=== PATIENT | male | born 1965 | race Hispanic/Latino ===

== ENCOUNTER 2019-07-26 13:50 | Observation (INO) | payer OTHER ==
[2019-07-26] MEDS ORDERED: Nitroglycerin 2% Ointment 1 INCH/1 GM Packet ONE (14:36)
[2019-07-26 14:42] LABS: #Basophils 0.1 thou/uL (0.0-0.2); #Eosinphils 0.3 thou/uL (0.0-0.7); #Lymphocytes 1.8 thou/uL (1.20-3.40); #Monocytes 0.5 thou/uL (0.11-0.59); #Neutrophils 6.1 thou/uL (1.40-6.50); %Basophils 0.6 % (0.0-1.0); %Eosinophils 3.2 % (0.0-10.0); %Lymphocytes 20.5 % (21.0-51.0); %Monocytes 5.9 % (0.0-10.0); %Neutrophils 69.7 % (42.0-75.0); Hemoglobin 15.9 g/dL (14.0-18.0); Mean Corpuscular HGB CONC 34.2 g/dL (32.0-36.0); Mean Corpuscular Hemoglobin 30.3 pg (27.0-31.0); Mean Corpuscular Volume 88.4 fL (78.0-98.0); Mean Platelet Volume 7.8 fL (7.4-10.4); Platelet Count 244 thou/uL (130-400); RBC Distribution Width 11.7 % (11.5-14.5); Red Blood Cell (RBC) Count 5.24 mill/uL (4.70-6.10); White Blood Cell (WBC) Count 8.7 thou/uL (4.8-10.8)
--- NOTE | 2019-07-26 15:01 | RAD ---
PORTABLE CHEST ONE VIEW: 07/26/2019 1:58 p.m. HISTORY: Chest pain. FINDINGS: The heart size is normal. The aorta is tortuous. The lungs are well expanded without lobar consolidat ion, pneumothoraces or pleural effusions. IMPRESSION: No radiographic evidence of acute cardiopulmonary process. POS: KOSTAA
[2019-07-26 15:04] LABS: ALT (SGPT) 15 U/L (8-55); AST (SGOT) 18 U/L (5-34); Albumin 4.6 g/dL (3.5-5.0); Alkaline Phosphatase 83 U/L (40-110); Anion Gap 15 mmol/L (10-20); BUN (Urea Nitrogen) 14 mg/dL (8.4-25.7); Bilirubin, Total 0.4 mg/dL (0.2-1.2); CK (CPK) 102 U/L (30-200); Calc. Creatinine Clearance 0 mL/min (70-130); Calcium 9.4 mg/dL (7.8-10.44); Carbon Dioxide 20 mmol/L (22-29); Chloride 106 mmol/L (98-107); Estimated GFR-MDRD Greater than 90; Globulin 2.8 g/dL (2.4-3.5); Glucose 97 mg/dL (70-105); Potassium 4.2 mmol/L (3.5-5.1); Protein, Total 7.4 g/dL (6.0-8.3); Sodium 137 mmol/L (136-145)
--- NOTE | 2019-07-26 15:59 | PDOC.FPRHP ---
- History of Present Illness History of Present Illness: 53 yo male presents for evaluation of blood pressure. Reports his left arm was throbbing during the week. Reports problems with a pinching sensation throughout the day. Worsened with driving. Pain is described as pinching, burning, stinging, pressure pain. Last seconds. Improves on its own. First episodes this week. Pain radiates from shoulder to fingers. States his neck was hurting and he was concerned this could be his blood pressure. BP upon arrival was 135/96. States he previously had a cardiac workup that was negative. Patient states he is very active. No CP, palpitations, SOB. PCP: Jeremiah Specialist: Alexander Code Status: Full PMHx: HLD, took statins at one time and stopped on his own; previously was on lisinopril but stopped on his own Valvular heart dz? -- leaky valve, hx of tobacco use, Right-sided sciatic nerve impingement Lumbar repair for trauma 2008 Social alcohol use. Tobacco use in the past. Up to 2.5 ppd. Stopped 10 years ago. No illegal drug use. Works for [email or web address] Father with CAD. Brother with OR/CAD. Allergy to iodine, shellfish No medications ROS pos: none other than HPI ED Course: NS, held nitro - Allergies/Adverse Reactions Allergies Allergy/AdvReac Type Severity Reaction Status Date / Time No Known Allergies Allergy Verified 10/22/13 10:07 - Home Medications Medication Instructions Recorded Confirmed Type Amoxicillin/Potassium Clav 1 tab PO Q12HR #20 tablet 10/22/13 Rx [Augmentin] HYDROcodone/Chlorphen Polis 5 ml PO BID PRN #70 ml 10/22/13 Rx [Tussionex] - Review of Systems General: denies: fever/chills, night sweats Eyes: denies: eye pain, vision changes ENT: denies: nasal congestion, rhinorrhea Respiratory: denies: cough, shortness of breath Cardiovascular: reports: chest pain (previously, not currently). denies: edema Gastrointestinal: denies: nausea, vomiting, constipation Genitourinary: denies: incontinence, discharge Skin: denies: rashes, lesions Musculoskeletal: denies: pain, swelling Neurological: denies: numbness, syncope Psychological: denies: anxiety, depression - Vital signs BP: [135/96] HR: [60] RR: [16] Tmax: [97.6] Pox: [98]% on [RA] Wt: [92.25kg] - Physical Exam Constitutional: NAD, awake, alert and oriented HEENT: EOMI, no scleral icterus, MMM Neck: supple, FROM, trachea midline Chest: no-tender to palpation, no lesions Heart: RRR, normal S1/S2, no murmurs/rubs/gallops, pulses present Lungs: CTAB, no respiratory distress Abdomen: soft, non-tender Musculoskeletal: normal structure, normal tone, ROM grossly normal Neurological: no focal deficit, CN II-XII intact Skin: no rash/lesions, good turgor Heme/Lymphatic: no unusual bruising or bleeding, no purpura Psychiatric: normal mood and affect, good judgment and insight FMR H&P: Results - Labs Result Diagrams: 07/26/19 14:34 07/26/19 14:34 Lab results: WBC 8.7 thou/uL (4.8-10.8) 07/26/19 14:34 Hgb 15.9 g/dL (14.0-18.0) 07/26/19 14:34 Hct 46.4 % (42.0-52.0) 07/26/19 14:34 MCV 88.4 fL (78.0-98.0) 07/26/19 14:34 Plt Count 244 thou/uL (130-400) 07/26/19 14:34 Neutrophils % 69.7 % (42.0-75.0) 07/26/19 14:34 Sodium 137 mmol/L (136-145) 07/26/19 14:34 Potassium 4.2 mmol/L (3.5-5.1) 07/26/19 14:34 Chloride 106 mmol/L (98-107) 07/26/19 14:34 Carbon Dioxide 20 mmol/L (22-29) L 07/26/19 14:34 BUN 14 mg/dL (8.4-25.7) 07/26/19 14:34 Creatinine 0.81 mg/dL (0.7-1.3) 07/26/19 14:34 Glucose 97 mg/dL (70-105) 07/26/19 14:34 Calcium 9.4 mg/dL (7.8-10.44) 07/26/19 14:34 Total Bilirubin 0.4 mg/dL (0.2-1.2) 07/26/19 14:34 AST 18 U/L (5-34) 07/26/19 14:34 ALT 15 U/L (8-55) 07/26/19 14:34 Alkaline Phosphatase 83 U/L (40-110) 07/26/19 14:34 Creatine Kinase 102 U/L (30-200) 07/26/19 14:34 B-Natriuretic Peptide 11.5 pg/mL (0-100) 07/26/19 14:34 Serum Total Protein 7.4 g/dL (6.0-8.3) 07/26/19 14:34 Albumin 4.6 g/dL (3.5-5.0) 07/26/19 14:34 - EKG Interpretation EKG: Normal sinus rhythm FMR H&P: A/P - Problem List (1) Chest pain, rule out acute myocardial infarction Current Visit: Yes Status: Acute Code(s): R07.9 - CHEST PAIN, UNSPECIFIED (2) HLD (hyperlipidemia) Current Visit: Yes Status: Acute Code(s): E78.5 - HYPERLIPIDEMIA, UNSPECIFIED - Plan #ACS R/O -patient has had intermittent cp throughout the past week, followed by Dr. Munoz outpatient -EKG nsr, initial trop neg, continue to trend -will risk stratify: Flp, A1c -81mg asa -Heart score 4 -npo at midnight -stress test 07/27 #HLD, hx of -FLP tomorrow for risk stratification -will discuss statin use with patient tomorrow if necessary, as patient has stopped all of his home meds on his own DVT: lovenox Diet: HH, NPO at midnight Dispo: obs for stress test 07/27 for acs r/o Code: Full FMR H&P: Upper Level - Pertinent history Pt is a 53yo M with PMH of "leaky valve", previous hx of tobacco abuse (quit 10 yrs ago), Fhx of CAD, and HLD (untreated) here with 1 week hx of chest "pinching " with associated arm and L jaw/neck pain. He had negative stress test [address] Munoz. He denies HER, exertional angina, palpitations, LIN, n/v/c/ d. PMH: used to be treated for HTN with Lisinopril but didn't tolerate med and was told he could d/c, HLD Social: smoking 1-2.5ppd- quit 10 years ago. denies etoh and drug use. Fhx: brother and father with CAD - Pertinent findings VS: BP135/96 P60 R16, T97.6 O298%RA Gen: NAD, well appearing HEENT: moist MM, EOMI, no LAD Cardio: RRR, no murmurs, no reproducible cp on palpation Lungs: CTAB Abd: soft, nontender Ext: no edema, no pain with palpation of L arm Psych: Aox4 Pertinent Labs: Troponin: <0.01 BNP: 11 EKG: NSR, no ST changes - Plan Date/Time: 07/26/191549 I, Erin Alves, have evaluated this patient and agree with findings/plan as outlined by employee communications intern resident. Pertinent changes/additions are listed here. Atypical CP: - Heart score 2. Will get AM treadmill stress test, NPO at CO. Will risk stratify with FLP, TSH, A1c. Hx of possible HTN, will continue to monitor for need of antihypertensives. Trend trops. Hx of HLD: FLP pending. Pt reports previous refusal to take meds. Anticipate need to have discussion on risks of elevated cholesterol and CAD. Dispo: likely <2 midnights Code status: Full Addendum - Attending - Attending Attestation Date/Time: 07/26/191549 I personally evaluated the patient and discussed the management with Dr. Alves and Dr. Bautista I agree with the History, Examination, Assessment and Plan documented above with any addition or exceptions noted below. 53 yo male with extensive family hx of heart dz presents for evaluation of left sided arm pain. Previous stress testing negative but has been over 1 year. Denies any symptoms with activity. States arm pain has been progressive over the past week. Notes some increase in stress at work. VS, labs, imaging reviewed. Agree with PE as documented by resident. 1. Atypical CP: Due to family hx concern for ACS. Trop and EKG negative. Pain resolved. Stress negative last year. Will repeat stress in AM. Evaluate risk factors. 2. Left arm pain: Likely related to MSK. Would perform workup outpatient. Has history of back trauma. Consider gabapentin as needed. Obs. ABrayMD
[2019-07-26] MEDS ORDERED: Ondansetron ODT 4 MG TAB PO PRN (16:45)
[2019-07-26] MEDS ORDERED: Acetaminophen 325 MG TAB PO PRN (16:45)
[2019-07-26 18:06] LABS: Troponin I Less than 0.010 ng/mL (< 0.028)
[2019-07-26 19:37] VITALS: BMI 31.6
[2019-07-26 20:56] LABS: Troponin I Less than 0.010 ng/mL (< 0.028)
[2019-07-27 04:39] LABS: Hemoglobin A1c 5.3 % (4.0-6.0)
[2019-07-27 04:46] LABS: Cardiac Risk 5.1 (Less than 4.5)
--- NOTE | 2019-07-27 06:52 | PDOC.FM ---
- Subjective Subjective: Pt is doing well today. He denies any pain. He does not take any medications at home. He sees Dr. Munoz for "leaky heart valve". - Objective Vital Signs & Weight: Vital Signs (12 hours) Temp Pulse Resp BP BP Pulse Ox 07/27/19 03:45 97.9 F 58 L 16 110/65 97 07/27/19 00:23 97.7 F 68 16 138/66 95 07/26/19 19:13 97.6 F 62 16 161/85 H 96 Weight Weight 94.574 kg I&O: 07/25/19 07/26/19 07/27/19 06:59 06:59 06:59 Intake Total 240 Balance 240 Result Diagrams: 07/26/19 14:34 07/26/19 14:34 Phys Exam - Physical Examination Constitutional: NAD Respiratory: no wheezing, no rales, clear to auscultation bilateral Cardiovascular: RRR, no significant murmur Gastrointestinal: soft, non-tender, no distention, positive bowel sounds Musculoskeletal: no edema, pulses present Neurological: non-focal, normal sensation Psychiatric: normal affect, A&O x 3 Dx/Plan (1) Hx of smoking Code(s): Z87.891 - PERSONAL HISTORY OF NICOTINE DEPENDENCE Status: Acute (2) Chest pain, rule out acute myocardial infarction Code(s): R07.9 - CHEST PAIN, UNSPECIFIED Status: Acute (3) HLD (hyperlipidemia) Code(s): E78.5 - HYPERLIPIDEMIA, UNSPECIFIED Status: Acute - Plan Plan: #ACS R/O -patient has had intermittent cp throughout the past week, followed by Dr. Munoz outpatient for "leaky heart valve" -EKG nsr, initial trop neg x 3 -Trig 159, Chol 199, LDL 128, HDL 39 ; ASCVD Risk 7.2% - a1C 5.3 -81mg asa - continue on discharge -Heart score 4 -npo at midnight -stress test pending today #HLD, hx of - Trig 159, Chol 199, LDL 128, HDL 39 - will start atorvastatin 40 mg daily DVT: lovenox Diet: HH, NPO at midnight Dispo: obs for stress test today for acs r/o; if negative pt will be discharged. Code: Full
[2019-07-27] MEDS ORDERED: Enoxaparin Sodium 40 MG/0.4 ML SYRINGE SC SCH (09:00)
[2019-07-27] MEDS ORDERED: Aspirin 81 mg Enteric Coated Tablet PO SCH (09:00)
[2019-07-27 09:23] VITALS: BP 123/77; TEMP 97.8
[2019-07-27] MEDS ORDERED: Atorvastatin Calcium 40 MG TAB PO SCH (21:00)
--- NOTE | 2019-07-28 08:14 | DIS ---
DATE OF ADMISSION: 07/26/2019 DATE OF DISCHARGE: 07/27/2019 RESIDENT: Isreal Gaytan DO ADMITTING ATTENDING: Nisha Wisdom MD DISCHARGE ATTENDING: Kadeem Mccabe MD CONSULTS: None. PROCEDURES PERFORMED: 1. Exercise stress test on 07/27/2019, revealed no signs of ischemia or significant blockages. 2. Chest x-ray on 07/26/2019, revealed no radiographic evidence of acute cardiopulmonary processes. PRIMARY DIAGNOSIS: Chest pain, rule out. SECONDARY DIAGNOSIS: Hyperlipidemia. DISCHARGE MEDICATIONS: 1. Atorvastatin 40 mg daily. 2. Aspirin 81 mg p.o. daily. 3. Resume home medication. 4. Tussionex 5 mL p.o. b.i.d. p.r.n. DISCONTINUED MEDICATIONS: None. HISTORY OF PRESENT ILLNESS/HOSPITAL COURSE: Mr. Gustavo Garay is a 53-year- old male, who presented to the emergency department with intermittent chest pain throughout the previous week. His past medical history is significant for leaky heart valve, for which he sees Dr. Munoz in the outpatient setting. He states that his brother and father also have heart defects. It is likely he is speaking of valvular regurgitation. His EKG revealed normal sinus rhythm, troponins were negative x3. He was risk stratified as he did not have any lipid panels or A1c on file. Due to his elevated triglycerides 159, cholesterol 199, LDL 128, HDL 39, and ASCVD risk of 7.2%, he was started on atorvastatin 40 mg daily. A1c level was 5.3. Due to his chest pain, we also started him on asp 81. He underwent a stress test which did not reveal any significant abnormalities, ischemia, or blockages. He was instructed to follow up with his primary care physician, Dr. Korina Whitten , at his next convenience to follow up on his hyperlipidemia. He is also advised to follow up with Dr. Munoz concerning his possible cardiac regurgitation. DISPOSITION: Stable. DISCHARGE INSTRUCTIONS: 1. Location: [facility]. 2. Diet: Heart healthy. 3. Activity: Ad anish. 4. Followup: Follow up with Dr. Korina Whitten in the next 1-2 weeks. Job ID: [id number] [facility]
--- NOTE | 2019-07-30 10:21 | STRESS ---
Acquisition Time: 2019-07-27 08:32:26 Total Exercise Time: 00:09:00 Test Indications: CHEST PAIN Medications: Protocol: ELIS Max HR: 144 BPM 86% of Pred: 166 BPM Max BP: 162/096 mmHG Max Work Load: 10.1 METS RESTING ECG: NORMAL SINUS RHYTHM SYMPTOMS: DYSPNEA ON EXERTION NORMAL BP RESPONSE ECTOPY: NONE ECG STRESS: NO SIGNIFICANT CHANGES INTERPRETATION: NEGATIVE GXT EXERCISE FOR 9:00; PEAK HEART RATE 146 BPM Confirmed by GRISEL TORRE ([id number]), editor magazine SARAY SCRUGGS ([id number]) on 07/30/2019 10:20:35 AM Referred By: MD Pablo WHITING Confirmed By:GRISEL TORRE
--- NOTE | 2019-08-01 15:22 | EKG ---
Test Reason : Blood Pressure : / mmHG Vent. Rate : 068 BPM Atrial Rate : 068 BPM P-R Int : 156 ms QRS Dur : 096 ms QT Int : 386 ms P-R-T Axes : 042 009 041 degrees QTc Int : 410 ms Normal sinus rhythm Normal ECG Confirmed by CHANTEL CISNEROS, SANTO ([id number]), editor house organ GAMAL WOODRUFF ([id number]) on 08/01/2019 3:21:40 PM Referred By: Confirmed By:SANTO GOLDEN MD
== END 2019-07-27 13:02 | disposition home or self-care (01) ==
LOC: ERS 13:50 → ERHOLD 16:00 → 2SW 19:45
PROVIDERS: ADMIT Family Medicine; ATTEND Family Medicine
DX: R07.89 Other chest pain (principal); M79.602 Pain in left arm; E78.5 Hyperlipidemia, unspecified; I10 Essential (primary) hypertension; I38 Endocarditis, valve unspecified; Z87.891 Personal history of nicotine dependence; Z79.899 Other long term (current) drug therapy
CPT/HCPCS: 36415; 71045; 80053; 80061; 82550; 83036; 83880; 84443; 84484; 85025; 93005; 93017; 96360; 96361; 96372; G0378; J1650

== ENCOUNTER 2020-11-24 10:11 | Outpatient (CLI) | payer OTHER | END 2020-11-24 10:12 | disposition home or self-care (01) | LOC: RAD-FRANK 10:11 | PROVIDERS: ATTEND Nurse Practitioner Family | DX: M54.31 Sciatica, right side (principal); M54.5 Low back pain; M47.816 Spondylosis without myelopathy or radiculopathy, lumbar region; Z98.890 Other specified postprocedural states | CPT/HCPCS: 72100 ==

== ENCOUNTER 2021-01-06 06:59 | Day surgery (SDC) | payer BC, OTHER ==
[2021-01-03 14:11] VITALS: BMI 33.6
[2021-01-06 07:50] VITALS: BP 142/88; TEMP 98.1
[2021-01-06] MEDS ORDERED: Iopamidol-M 200 41% 20 ML VIAL ONE (14:47)
== END 2021-01-06 10:20 | disposition home or self-care (01) ==
LOC: RAD 06:59
PROVIDERS: ATTEND Neurological Surgery
DX: M48.062 Spinal stenosis, lumbar region with neurogenic claudication (principal); M51.36 Other intervertebral disc degeneration, lumbar region; S32.041A Stable burst fracture of fourth lumbar vertebra, initial encounter for closed fracture; M54.42 Lumbago with sciatica, left side; M54.41 Lumbago with sciatica, right side; N40.0 Benign prostatic hyperplasia without lower urinary tract symptoms; I10 Essential (primary) hypertension; Z79.899 Other long term (current) drug therapy; Z87.891 Personal history of nicotine dependence; Z88.8 Allergy status to other drugs, medicaments and biological substances; Z91.013 Allergy to seafood
CPT/HCPCS: 62304; 72132; Q9966

== ENCOUNTER 2021-09-15 09:32 | Outpatient (CLI) | payer BC, OTHER ==
[2021-09-15 10:57] LABS: Hemoglobin 14.4 g/dL (13.5-17.5); Mean Corpuscular HGB CONC 32.4 g/dL (32.0-36.0); Mean Corpuscular Hemoglobin 29.5 pg (27.0-33.0); Mean Platelet Volume 9.9 fl (7.4-10.4); Platelet Count 262 10x3/uL (150-450); RBC Distribution Width 12.4 % (11.5-14.5); Red Blood Cell (RBC) Count 4.88 10x6/uL (4.32-5.72)
[2021-09-15 11:11] LABS: Bilirubin Neg (Negative); Blood, Urine Negative (Negative); Clarity Clear (Clear); Glucose, Urine (Dipstick) Normal (Negative); Ketone, Urine Negative (Negative); Leukocyte Negative (Negative); Nitrite Negative (Negative); Protein, Urine (Dipstick) Negative (Neg-Trace); Urobilinogen Normal mg/dL (Less than 2)
[2021-09-15 11:19] LABS: Anion Gap 12 mmol/L (10-20); BUN (Urea Nitrogen) 10 mg/dL (8.4-25.7); Calc. Creatinine Clearance 0 mL/min (70-130); Calcium 9.8 mg/dL (7.8-10.44); Carbon Dioxide 27 mmol/L (22-29); Chloride 106 mmol/L (98-107); Glucose 92 mg/dL (70-105); Potassium 5.1 mmol/L (3.5-5.1); Sodium 140 mmol/L (136-145)
[2021-09-15 11:33] LABS: Bacteria/HPF None Seen HPF (None Seen); RBC/HPF 0-3 HPF (0-3); Squamous Epithelial 0-3 HPF (0-3); Urine Culture Reflex No No; WBC/HPF 0-3 HPF (0-3)
[2021-09-15 17:34] LABS: SARS-CoV-2 PCR by NAA Not Detected (NotDetected)
== END 2021-09-15 09:33 | disposition home or self-care (01) ==
LOC: LABBT 09:32
PROVIDERS: ATTEND Urology
DX: Z01.818 Encounter for other preprocedural examination (principal); N40.0 Benign prostatic hyperplasia without lower urinary tract symptoms; Z20.822 Contact with and (suspected) exposure to COVID-19
CPT/HCPCS: 80048; 81001; 85027; 87086; 93005; 93010; U0003; U0005

== ENCOUNTER 2021-09-19 06:51 | Day surgery (SDC) | payer BC, OTHER ==
[2021-09-15 15:32] VITALS: BMI 30.5
[2021-09-19] MEDS ORDERED: Levofloxacin 500 mg/D5W 100 ml Premix Bag ONE (07:41)
[2021-09-19] MEDS ORDERED: Fentanyl 100 MCG/2 ML VIAL ONE (09:24)
[2021-09-19] MEDS ORDERED: Dexamethasone 20 MG/5 ML VIAL ONE (09:28)
[2021-09-19] MEDS ORDERED: Lidocaine 1% PF 5 ML VIAL ONE (09:28)
[2021-09-19] MEDS ORDERED: PROPOFOL 200 MG/20 ML VIAL ONE (09:28)
[2021-09-19] MEDS ORDERED: Ondansetron PF 4 MG/2 ML Vial ONE (09:28)
[2021-09-19] MEDS ORDERED: Phenazopyridine HCl 100 MG TAB ONE (10:18)
[2021-09-19] MEDS ORDERED: Ketorolac Tromethamine 30 MG/ML VIAL ONE (10:18)
[2021-09-19] MEDS ORDERED: Oxybutynin 5 MG TAB ONE (10:18)
== END 2021-09-19 12:33 | disposition home or self-care (01) ==
LOC: SDC 06:51
PROVIDERS: ATTEND Urology
PROC: 0VT08ZZ Resection of Prostate, Via Natural or Artificial Opening Endoscopic (ICD-10-PCS; principal; 2021-09-19)
DX: N40.1 Benign prostatic hyperplasia with lower urinary tract symptoms (principal); N13.8 Other obstructive and reflux uropathy; R39.14 Feeling of incomplete bladder emptying; N32.89 Other specified disorders of bladder; I10 Essential (primary) hypertension; G47.00 Insomnia, unspecified; Z87.891 Personal history of nicotine dependence; Z79.899 Other long term (current) drug therapy; Z91.013 Allergy to seafood; Z91.041 Radiographic dye allergy status; Z98.1 Arthrodesis status
CPT/HCPCS: 88305; J1885; J1956; J3010

== ENCOUNTER 2023-07-31 09:20 | Outpatient (CLI) | payer BC, OTHER | END 2023-07-31 09:21 | disposition home or self-care (01) | LOC: BICRAD 09:20 | PROVIDERS: ATTEND Family Medicine | DX: R05.9 Cough, unspecified (principal) | CPT/HCPCS: 71046 ==

== ENCOUNTER 2023-11-19 09:55 | Observation (INO) | payer BC, OTHER ==
[2023-11-19 10:48] LABS: #Eosinphils 0.1 thou/uL (0.0-0.7); #Monocytes 0.3 thou/uL (0.11-0.59); #Neutrophils 3.9 thou/uL (1.40-6.50); %Basophils 0.3 % (0.0-1.0); %Eosinophils 0.8 % (0.0-10.0); %Lymphocytes 26.9 % (21.0-51.0); %Monocytes 5.7 % (0.0-10.0); Hematocrit 46.5 % (42.0-52.0); Hemoglobin 16.1 g/dL (14.0-18.0); Mean Corpuscular HGB CONC 34.6 g/dL (32.0-36.0); Mean Corpuscular Hemoglobin 31.3 pg (27.0-31.0); Mean Corpuscular Volume 90.3 fl (78.0-98.0); Mean Platelet Volume 9.6 fL (7.4-10.4); Platelet Count 218 10x3/uL (130-400); Red Blood Cell (RBC) Count 5.15 mill/uL (4.70-6.10); White Blood Cell (WBC) Count 5.9 10x3/uL (4.8-10.8)
[2023-11-19 11:10] LABS: ALT (SGPT) 13 U/L (8-55); AST (SGOT) 14 U/L (5-34); Albumin 4.4 g/dL (3.5-5.0); Alkaline Phosphatase 72 U/L (40-110); Anion Gap 11 mmol/L (10-20); BUN (Urea Nitrogen) 14 mg/dL (8.4-25.7); Bilirubin, Total 0.6 mg/dL (0.2-1.2); Calc. Creatinine Clearance 0 mL/min (70-130); Carbon Dioxide 24 mmol/L (22-29); Chloride 107 mmol/L (98-107); Estimated GFR 101; Globulin 2.5 g/dL (2.4-3.5); Glucose 97 mg/dL (70-105); Lipase 11 U/L (8-78); Potassium 3.6 mmol/L (3.5-5.1); Protein, Total 6.9 g/dL (6.0-8.3); Sodium 138 mmol/L (136-145)
[2023-11-19 11:13] LABS: Troponin I Less than 0.010 ng/mL (< 0.028)
[2023-11-19] MEDS ORDERED: Acetaminophen 325 MG TAB PO PRN (13:19)
[2023-11-19] MEDS ORDERED: Ondansetron ODT 4 MG TAB PO PRN (13:19)
[2023-11-19] MEDS ORDERED: Aspirin Chewable 81 MG TAB ONE (13:37)
[2023-11-19 15:59] VITALS: BMI 28.7
[2023-11-19 16:45] LABS: Hemoglobin A1c 5.5 % (4.0-6.0)
[2023-11-19 16:57] LABS: Troponin I Less than 0.010 ng/mL (< 0.028)
[2023-11-19 17:10] LABS: HIV (1/2) Antibody/Antigen Non-Reactive (NonReactive); HIV 1/2 INDEX 0.25 S/CO (<1.00)
[2023-11-19 18:38] LABS: Troponin I Less than 0.010 ng/mL (< 0.028)
[2023-11-19 19:13] LABS: Syphilis Antibody Nonreactive (Nonreactive); Syphilis Antibody Index 0.06 S/CO (<1.00 Non-Reactive)
[2023-11-20 05:41] LABS: #Eosinphils 0.2 thou/uL (0.0-0.7); #Monocytes 0.4 thou/uL (0.11-0.59); #Neutrophils 3.6 thou/uL (1.40-6.50); %Basophils 0.3 % (0.0-1.0); %Eosinophils 3.5 % (0.0-10.0); %Lymphocytes 30.9 % (21.0-51.0); %Monocytes 6.3 % (0.0-10.0); %Neutrophils 58.8 % (42.0-75.0); Hematocrit 43.6 % (42.0-52.0); Mean Corpuscular HGB CONC 34.4 g/dL (32.0-36.0); Mean Corpuscular Hemoglobin 31.5 pg (27.0-31.0); Mean Corpuscular Volume 91.6 fl (78.0-98.0); Mean Platelet Volume 9.7 fL (7.4-10.4); Platelet Count 208 10x3/uL (130-400); RBC Distribution Width 12.2 % (11.5-14.5); Red Blood Cell (RBC) Count 4.76 mill/uL (4.70-6.10); White Blood Cell (WBC) Count 6.1 10x3/uL (4.8-10.8)
[2023-11-20 06:08] LABS: Anion Gap 9 mmol/L (10-20); BUN (Urea Nitrogen) 17 mg/dL (8.4-25.7); Calc. Creatinine Clearance 129 mL/min (70-130); Calcium 8.6 mg/dL (7.8-10.44); Carbon Dioxide 23 mmol/L (22-29); Cardiac Risk 4.3 (Less than 4.5); Chloride 110 mmol/L (98-107); Cholesterol 171 mg/dl (< 200 Desired); Estimated GFR 103; Glucose 94 mg/dL (70-105); HDL Cholesterol 40 mg/dL (>60 Neg Risk); LDL Cholesterol, Calculated 110 mg/dL; Potassium 4.2 mmol/L (3.5-5.1); Sodium 138 mmol/L (136-145); Triglycerides 103 mg/dL (Less than 150)
[2023-11-20] MEDS: Enoxaparin 40 MG (0.4 mL) SYRINGE SC SCH (08:45)
[2023-11-20 12:05] VITALS: BP 129/80; TEMP 97.8
== END 2023-11-20 13:17 | disposition home or self-care (01) ==
LOC: ERS 09:55 → ERHOLD 13:08 → 2SW 15:23
PROVIDERS: ADMIT Family Medicine; ATTEND Family Medicine
DX: R07.9 Chest pain, unspecified (principal); R55 Syncope and collapse; R00.1 Bradycardia, unspecified; F17.210 Nicotine dependence, cigarettes, uncomplicated; Z91.041 Radiographic dye allergy status; Z91.013 Allergy to seafood
CPT/HCPCS: 36415; 71045; 71046; 80048; 80053; 80061; 83036; 83690; 84443; 84484; 85025; 86780; 87389; 93005; 96372; G0378; J1650